=== PATIENT | female | born 1970 | race Caucasian/White ===

== ENCOUNTER 2019-11-20 16:34 | Emergency (ER) | payer OTHER, SELFPAY ==
[2019-11-20 16:40] VITALS: BP 138/87; PULSE 80; RESP 20; TEMP 36.9; O2SAT 100
--- NOTE | 2019-11-20 16:40 | ECG_ITS ---
Measurements Intervals [place] Rate: 75 P: 17 W[place]: 148 QRS: -7 QRSD: 100 T: -7 QT: 426 QTc: 476 Interpretive Statements SINUS RHYTHM INCOMPLETE RIGHT BUNDLE BRANCH BLOCK BORDERLINE T WAVE ABNORMALITY- INFERIOR LEADS BORDERLINE ECG Electronically Signed On 11-21-2019 7:02:10 CDT by Miles Moseley D.O.
--- NOTE | 2019-11-20 16:56 | ED.CHESTPAIN ---
HPI - Chest Pain General Chief Complaint: Chest Pain Stated Complaint: sob chest pain sweats nausea Time Seen by Provider: 11/20/19 16:43 Source: patient and RN notes reviewed Mode of arrival: ambulatory Limitations: no limitations History of Present Illness HPI narrative: Patient presents today complaining of sudden onset upper chest Tightness, shortness of breath, nausea and vomiting x1, sweats and chills, dizziness, And right upper quadrant pain. Symptoms began 1 hour prior to arrival, after patient finished shopping at [employer].Reports that the chest pain radiates to the mid back. Denies any cardiac history, familial cardiac history, GERD. States she has a, bad gallbladder that needs to be removed. She has tried no medication for symptoms prior to arrival. She currently rates her chest discomfort 08/15.Denies any recent illness, fever, cough. MD complaint: chest pain Related Data Allergies Allergy/AdvReac Type Severity Reaction Status Date / Time Penicillins Allergy Mild Verified 02/17/12 07:23 Sulfa (Sulfonamide Allergy Mild Verified 02/17/12 07:23 Antibiotics) Review of Systems Review of Systems: Narrative: CONSTITUTIONAL: Denies body aches, fever. +Sweats and chills EYES: Denies visual changes, redness, or discharge. ENT: Denies rhinorrhea, congestion, sore throat, or otalgia. CARDIOVASCULAR: Denies chest pain, palpitations, or edema. RESPIRATORY: Denies cough. +Shortness of breath GASTROINTESTINAL: +Right upper quadrant pain, nausea, vomiting, diarrhea GENITOURINARY: Denies dysuria or hematuria. SKIN: Denies rash, itching, or wounds. MUSCULOSKELETAL: Denies back pain, joint pain, or myalgia. NEUROLOGIC: Denies headache, numbness, tingling, or weakness.+Dizziness PSYCH: Denies depression or anxiety. PMFSH Past Medical History Medical History (Updated 11/20/19 @ 16:59 by Giovanna Muñoz, SALES AND SERVICE SPECIALIST, ) Anxiety Depression History of panic attacks Varicose veins of both lower extremities Comments At time of signature, I have reviewed and agree with nursing past medical, surgical, social and family history unless otherwise noted. Please see nursing chart for further information. There is no relevant family history pertinent to the presenting complaint Exam Narrative: Exam Narrative: GENERAL: Well-appearing, well-nourished, and in no acute distress. HEAD: Normocephalic, atraumatic. EYES: EOMI. No redness or drainage. Conjunctivae normal. ENT: Mucous membranes pink and moist. NECK: Normal AROM. Supple. No lymphadenopathy. CHEST: No respiratory distress. Clear to auscultation. HEART: Regular rate and rhythm. No murmur appreciated. Normal peripheral pulses. ABDOMEN: Soft, nondistended, normal active bowel sounds. +tender RUQ MUSCULOSKELETAL: No bony tenderness. EXTREMITIES: Normal range of motion. No edema. SKIN: Warm, dry, no rash. Capillary refill normal. Normal skin turgor. NEURO: No focal deficits. Alert and oriented x3. Gait steady. PSYCH: +Anxious Course Course Emergency Course: We will transfer patient to the ER for further evaluation of her symptoms. Vital Signs Vital signs: Vital Signs Temperature 98.5 F 11/20/19 16:40 Pulse Rate 80 11/20/19 16:40 Respiratory Rate 20 11/20/19 16:40 Blood Pressure 138/87 11/20/19 16:40 Pulse Oximetry 100 11/20/19 16:40 Temperature 98.5 F 11/20/19 16:40 Pulse Rate 80 11/20/19 16:40 Respiratory Rate 20 11/20/19 16:40 Blood Pressure 138/87 11/20/19 16:40 Pulse Oximetry 100 11/20/19 16:40 Reviewed Transfer Transfered to: [facility] Transportation: ALS Transfer rationale: Chest pain, shortness of breath, abdominal pain, Dizziness Accepting physician: Laksh[facility] - Chest Pain ECG Data EKG #1: ECG completion date: 11/20/19 ECG completion time: 16:56 Prior ECG tracings: not available for review Interpretation: AR interval 148, HR 74 EKG Interpretation: normal rate and sin
[2019-11-20 17:09] VITALS: BP 149/88; PULSE 80; RESP 20; O2SAT 100
== END 2019-11-20 17:09 | disposition short-term general hospital (02) ==
PROVIDERS: Emergency Provider Nurse Practitioner
DX: R07.9 Chest pain, unspecified (principal); R06.02 Shortness of breath; R10.11 Right upper quadrant pain
CPT/HCPCS: 93005; 99203; G0463

== ENCOUNTER 2020-03-15 07:20 | Outpatient (CLI) | payer OTHER, SELFPAY ==
--- NOTE | ~2020-03-15 | US_ITS ---
EXAMINATION: US thyroid EXAM DATE: 03/15/2020 08:02 INDICATION: Multinodular goiter. TECHNIQUE: Multiple grayscale and Doppler images of the thyroid were obtained (by a technologist who performed the scan) and subsequently reviewed. Individual nodules and recommendations may be reporte d in accordance with TI-RADS system as designated by the 2017 ACR White Paper TI-RADS committee. The re is no prior study for comparison. FINDINGS: Right thyroid lobe measures 5.4 x 1.8 x 1.4 cm, the left measuring 4.3 x 1.6 x 1.3 cm. There are scat tered thyroid nodules, largest described below. Nodules in the middle of the right thyroid lobe measuring 1.4 x 1.7 x 1.0 cm, solid (2 points), hypoe choic (2 points), wider than tall, smooth margin, containing macrocalcification(s) causing acoustic s hadowing (1 point), category TR4 for this nodule. Reportedly this nodule was previously biopsied on 07/15/2011, correlate with histology. Dimensions appear not significant changed compared to that time. The others are subcentimeter in size and not likely clinically significant. IMPRESSION: Stable multinodular goiter. Reviewed, dictated and finalized at location B. IMPRESSION: Stable multinodular goiter.
== END 2020-03-15 07:21 | disposition home or self-care (01) ==
PROVIDERS: Visit Provider Otolaryngology
DX: E04.2 Nontoxic multinodular goiter (principal)
CPT/HCPCS: 76536

== ENCOUNTER 2020-03-21 10:10 | Outpatient (CLI) | payer OTHER, SELFPAY ==
[2020-03-21 11:43] LABS: Free T4 Free Thyroxine 0.97 ng/mL (0.78-2.19)
== END 2020-03-21 10:11 | disposition home or self-care (01) ==
LOC: ANHLAB 10:13
PROVIDERS: Visit Provider Otolaryngology
DX: E04.1 Nontoxic single thyroid nodule (principal); R53.83 Other fatigue
CPT/HCPCS: 36415; 84439; 84443

== ENCOUNTER 2021-10-22 09:37 | Outpatient (CLI) | payer OTHER, SELFPAY | END 2021-10-22 09:38 | disposition home or self-care (01) | PROVIDERS: Visit Provider Otolaryngology | DX: H91.93 Unspecified hearing loss, bilateral (principal) | CPT/HCPCS: 92557; 92567 ==